=== PATIENT | male | born 1970 | race Caucasian/White ===

== ENCOUNTER 2020-12-07 21:46 | Emergency (ER) | payer OTHER, SELFPAY ==
--- NOTE | ~2020-12-07 | XR_ITS ---
EXAMINATION: XR chest 1V EXAM DATE: 12/07/2020 23:18 INDICATION: Dizziness, paresthesias in fingers. TECHNIQUE: Portable AP frontal chest x-ray was obtained. There is no prior study for comparison. FINDINGS: There is linear left perihilar subsegmental atelectasis. The lungs are otherwise clear. Th ere are no pleural effusions. The cardiomediastinal silhouette is within normal limits. There is no pneumothorax suspected. The bones and soft tissues are unremarkable. IMPRESSION: Linear left perihilar atelectasis. Reviewed, dictated and finalized at location G.
--- NOTE | ~2020-12-07 | CT_ITS ---
EXAMINATION: CTA brain carotid EXAM DATE: 12/07/2020 23:14 INDICATION: Dizziness, finger paresthesia. TECHNIQUE: Noncontrast head CT. Spiral CTA of the carotid arteries was performed with intravenous i njection 100 cc of Omnipaque 350. Axial, coronal, sagittal reformatted images reviewed. Additional r eformatted images created on dedicated 3-D workstation. NASCET comparable standard used to assess th e degree of arterial stenosis. Spiral CT angiogram cerebral arteries performed with the same intrave nous injection of contrast. Source images of the brain CTA transferred to dedicated workstation for 3 -D rotational image creation. Coronal, sagittal maximum intensity pixel images also reviewed. The d ose-length product (DLP) for this examination was 1849.92 mGy-cm. The exposure was tailored accordi ng to patient size, and iterative reconstruction (ASIR) was used as additional dose reduction techniq ue. There is no prior study for comparison. FINDINGS: There is no carotid bulb or siphon arterial sclerosis. The vertebral arteries are codominan t. There is no carotid or vertebral basilar arterial dissection or fibromuscular dysplasia. There ar e no cerebral artery aneurysms. There is symmetric cerebral artery arborization. The sagittal, transv erse and sigmoid sinuses enhance normally, no venous sinus thrombosis. Internal cerebral veins also e nhance normally. There is no acute intraparenchymal hemorrhage. No evidence of intraparenchymal brain mass lesion. N o evidence of acute infarction. There is no mass effect or midline shift. There is no obstructive hyd rocephalus suspected. There are no extra-axial collections. There are no calvarial acute fractures. IMPRESSION: 1. No acute carotid or intracranial findings. 2. Bilateral carotid bulb 0% stenosis. Reviewed, dictated and finalized at location G.
[2020-12-07 21:49] VITALS: BP 155/99; PULSE 57; RESP 20; TEMP 36.7; O2SAT 100
[2020-12-07 22:06] VITALS: BP 137/74; PULSE 58; RESP 12; O2SAT 99
--- NOTE | 2020-12-07 22:17 | ECG_ITS ---
Measurements Intervals [place] Rate: 57 P: 64 RI: 154 QRS: 70 QRSD: 104 T: 41 QT: 404 QTc: 397 Interpretive Statements SINUS BRADYCARDIA BORDERLINE ECG Electronically Signed On 12-08-2020 7:01:04 CDT by Chong Galindo D.O.
[2020-12-07] MEDS: SODIUM CHLORIDE 0.9% IV 1,000 ML 999 ML IV CONT (22:25)
[2020-12-07 22:37] LABS: Basophils Absolute Auto 0.1 K/mm3 (0.0-0.1); Basophils Percent Auto 1.3 % (0.2-1.2); Eosinophils Absolute Auto 0.1 K/mm3 (0-0.3); Eosinophils Percent Auto 2.2 % (0-4.4); Hematocrit 45.1 % (42.0-52.0); Hemoglobin 15.1 g/dL (14.0-18.0); Immature Granulocyte Absolute 0.02 K/mm3 (0.00-0.031); Immature Granulocyte Percent A 0.3 % (0-0.5); Lymphocytes Absolute Auto 2.85 K/mm3 (0.9-3.2); Lymphocytes Percent Auto 47.5 % (18.3-44.2); Mean Corpuscular HGB Conc 33.5 g/dl (32-36); Mean Corpuscular Hemoglobin 29.9 pg (26-34); Mean Corpuscular Volume 89.3 fl (80-100); Mean Platelet Volume 10.4 fl (7.4-10.4); Monocytes Absolute Auto 0.6 K/mm3 (0.1-0.6); Monocytes Percent Auto 9.3 % (2.6-8.5); Neutrophils Absolute Auto 2.4 K/mm3 (1.3-6.7); Neutrophils Percent Auto 39.4 % (45.5-73.1); Platelet Count Result 289 k/mm3 (150-375); Red Blood Count 5.05 M/mm3 (4.6-6.20); Red Cell Distribution Width 12.7 % (11.5-14.5)
[2020-12-07 22:48] LABS: INR 0.9; Prothrombin Time 12.8 Seconds (11.1-14.7)
[2020-12-07 22:55] LABS: Alanine Aminotransferase 16 U/L (4-50); Albumin Level 4.2 g/dL (3.5-5.1); Alkaline Phosphatase 69 U/L (38-126); Anion Gap 5 mmol/L (8-16); Aspartate Amino Transferase 20 U/L (17-59); Bilirubin,Total 0.3 mg/dL (0.2-1.3); Blood Urea Nitrogen 19 mg/dL (9-20); Calcium 8.7 mg/dL (8.4-10.2); Carbon Dioxide 31 mmol/L (22-30); Chloride 102 mmol/L (98-107); Estimated CRCL calculation 78 ml/min; Estimated Glomerular Filt Rate > 60; Glucose 100 mg/dL (75-110); Sodium 138 mmol/L (137-145)
[2020-12-07 23:57] VITALS: BP 121/73; PULSE 57; RESP 18; O2SAT 99
--- NOTE | 2020-12-08 00:22 | ED.GENADULT ---
HPI - General Adult General Chief complaint: Neuro Symptoms/Deficit Stated complaint: lightheaded, neck pain Time Seen by Provider: 12/07/20 22:09 History of Present Illness HPI narrative: Patient is a 50-year-old gentleman who presents to emergency department with chief complaint of dizziness lightheadedness and numbness in bilateral arms. The patient states this been going on for approximately 1 week patient reports he has not followed up with his primary care physician. Patient reports that he had a primary injury of head injury many years ago when he was approximately age 15 patient reports since then he has had chronic neck pain but is never really had any work-up for this. Patient denies fever denies chest pain no shortness of breath denies focal neurological deficit Related Data Allergies Allergy/AdvReac Type Severity Reaction Status Date / Time No Known Allergies Allergy Verified 12/07/20 22:10 Review of Systems Review of Systems: Narrative: A 10 system review of systems was completed on the patient and is negative except for what is stated in the HPI. Nursing and ancillary documentation was reviewed. [facility] Family History Family History (Updated 01/08/17 @ 11:33 by DOCTOR UNKNOWN) Father Diabetes mellitus Family history of gout Family history of arthritis Social History Social History Smoking status: Never smoker Alcohol intake: current Gender identity (if verbalized by the patient): Male Comments Patient denies medical history Social history patient denies smoking Exam Narrative: Exam Narrative: GENERAL: Well-appearing, well-nourished, and in no acute distress. HEAD: Normocephalic, atraumatic. EYES: PERRLA and EOMI. ENT: Nares clear, no rhinorrhea or epistaxis. Mucous membranes moist. NECK: Supple. CHEST: Clear to auscultation. No respiratory distress. HEART: Regular rate and rhythm. No murmur heard. Normal peripheral pulses. ABDOMEN: Soft, nontender, nondistended, normal active bowel sounds. EXTREMITIES: Normal range of motion. No edema. SKIN: Warm, dry, no rash. NEURO: No focal deficits. Alert and oriented x3. PSYCH: Normal mood and affect. Course Vital Signs Vital signs: Vital Signs Temperature 36.7 C 12/07/20 21:49 Pulse Rate 57 L 12/07/20 21:49 Respiratory Rate 20 12/07/20 21:49 Blood Pressure 155/99 H 12/07/20 21:49 Pulse Oximetry 100 03/23/21 21:49 Temperature 36.7 C 12/07/20 21:49 Pulse Rate 57 L 12/07/20 23:57 Respiratory Rate 18 12/07/20 23:57 Blood Pressure 121/73 12/07/20 23:57 Pulse Oximetry 99 12/07/20 23:57 Medical Decision Making Vital Signs Vital Signs: Vital Signs Temperature 36.7 C 12/07/20 21:49 Pulse Rate 57 L 12/07/20 21:49 Respiratory Rate 20 12/07/20 21:49 Blood Pressure 155/99 H 12/07/20 21:49 Pulse Oximetry 100 12/07/20 21:49 Temperature 36.7 C 12/07/20 21:49 Pulse Rate 57 L 12/07/20 23:57 Respiratory Rate 18 12/07/20 23:57 Blood Pressure 121/73 12/07/20 23:57 Pulse Oximetry 99 12/07/20 23:57 Lab Data Result diagrams: 12/07/20 22:27 12/07/20 22:27 Labs: Lab Results 12/07/20 12/07/20 12/07/20 Range/Units 22:27 22:27 22:27 WBC 6.0 (4.5-10.0) K/mm3 RBC 5.05 (4.6-6.20) M/mm3 Hgb 15.1 (14.0-18.0) g/dL Hct 45.1 (42.0-52.0) % MCV 89.3 (80-100) fl MCH 29.9 (26-34) pg MCHC 33.5 (32-36) g/dl RDW 12.7 (11.5-14.5) % Plt Count 289 (150-375) k/mm3 MPV 10.4 (7.4-10.4) fl Immature Gran % (Auto) 0.3 (0-0.5) % Neut % (Auto) 39.4 L (45.5-73.1) % Lymph % (Auto) 47.5 H (18.3-44.2) % Miller % (Auto) 9.3 H (2.6-8.5) % Eos % (Auto) 2.2 (0-4.4) % Baso % (Auto) 1.3 H (0.2-1.2) % Lymph # (Auto) 2.85 (0.9-3.2) K/mm3 Miller # (Auto) 0.6 (0.1-0.6) K/mm3 Eos # (Auto) 0.1 (0-0.3) K/mm3 Baso # (Auto) 0.1 (0.0-0.1) K/mm3 Abs Immat Gran (auto) 0.02 (0.00-0.031
[2020-12-08 00:29] LABS: Add Urine Microscopic? NO; Appearance Urine Clear (Clear); Bilirubin Urine Negative (Negative); Blood Urine Negative (Negative); Color Urine Yellow (Yellow); Glucose Urine UA Negative (Negative); Ketones Urine Negative (Negative); Leukocyte Esterase Ur Negative LEU/UL (Negative); Nitrate Urine Negative (Negative); Protein Urine Negative (Negative); Urobilinogen Urine Negative mg/dL (<2.0)
[2020-12-08 00:38] LABS: Specific Grav Ur 1.032 (1.001-1.035)
[2020-12-08 00:58] VITALS: BP 127/71; PULSE 58; RESP 18; O2SAT 99
== END 2020-12-08 01:10 | disposition home or self-care (01) ==
PROVIDERS: Emergency Provider Emergency Medicine; PCP Internal Medicine
DX: R42 Dizziness and giddiness (principal)
CPT/HCPCS: 36415; 70496; 70498; 71045; 80053; 81003; 83735; 85025; 85610; 85730; 93005; 96360; 99284; J7030; Q9967

== ENCOUNTER 2021-08-25 08:16 | Outpatient (CLI) | payer OTHER, SELFPAY ==
[2021-08-25 08:27] LABS: Basophils Absolute Auto 0.06 K/mm3 (0.00-0.10); Basophils Percent Auto 1.2 % (0.0-1.0); Eosinophils Absolute Auto 0.07 K/mm3 (0.02-0.50); Eosinophils Percent Auto 1.4 % (1.0-6.0); Hematocrit 46.5 % (40.0-54.0); Hemoglobin 15.6 g/dL (14.0-18.0); Immature Granulocyte Absolute 0.01 K/mm3 (0.00-0.00); Immature Granulocyte Percent A 0.2 % (0.0-0.0); Lymphocytes Absolute Auto 1.87 K/mm3 (1.10-4.50); Mean Corpuscular HGB Conc 33.5 g/dL (32.0-36.0); Mean Corpuscular Hemoglobin 30.6 pg (27.0-31.0); Mean Corpuscular Volume 91.2 fL (78.0-102.0); Monocytes Absolute Auto 0.41 K/mm3 (0.10-0.90); Monocytes Percent Auto 8.1 % (2.0-11.0); Neutrophils Absolute Auto 2.6 K/mm3 (1.7-7.2); Neutrophils Percent Auto 52.1 % (50.0-70.0); Platelet Count Result 272 K/mm3 (150-420); Red Cell Distribution Width 12.5 % (11.6-14.4); White Blood Count 5.1 K/mm3 (4.8-10.8)
[2021-08-25 08:35] LABS: Add Urine Microscopic? NO; Appearance Urine Clear (Clear); Bilirubin Urine Negative (Negative); Blood Urine Negative (Negative); Color Urine Light Yellow (Yellow); Glucose Urine UA Negative (Negative); Ketones Urine Negative (Negative); Leukocyte Esterase Ur Negative LEU/UL (Negative); Nitrate Urine Negative (Negative); Protein Urine Negative (Negative); Specific Grav Ur 1.015 (1.010-1.020); Urobilinogen Urine 0.2 mg/dL (0.2-1.0)
[2021-08-25 09:10] LABS: Alanine Aminotransferase 32 U/L (16-63); Albumin Level 3.9 g/dL (3.4-5.0); Alkaline Phosphatase 73 U/L (46-116); Anion Gap 7 mmol/L (8-16); Aspartate Amino Transferase 17 U/L (15-37); Bilirubin,Total 0.6 mg/dL (0.00-1.00); Blood Urea Nitrogen 16 mg/dL (7-18); Carbon Dioxide 32 mmol/L (21-32); Chloride 102 mmol/L (98-108); Cholesterol 286 mg/dL (0-200); Estimated Glomerular Filt Rate > 60; Free T4 Free Thyroxine 0.87 ng/dL (0.76-1.46); Glucose 108 mg/dL (70-99); HDL Direct 57 mg/dL (40-60); LDL Cholesterol Calculated 205 mg/dL (<130); Osmolality Calculated 294 mOsm/kg (285-295); Potassium 4.6 mmol/L (3.5-5.1); Sodium 141 mmol/L (136-145); Thyroid Stimulating Hormone 2.13 uIU/mL (0.36-3.74); Triglycerides 118 mg/dL (0-150)
[2021-08-25 15:05] LABS: Hemoglobin A1C 5.7 % (<5.7)
== END 2021-08-25 08:17 | disposition home or self-care (01) ==
LOC: CHSLAB 08:18
PROVIDERS: PCP Internal Medicine; Visit Provider Nurse Practitioner Family
DX: R03.0 Elevated blood-pressure reading, without diagnosis of hypertension (principal); E78.2 Mixed hyperlipidemia; M10.9 Gout, unspecified; Z00.00 Encounter for general adult medical examination without abnormal findings; R73.01 Impaired fasting glucose
CPT/HCPCS: 36415; 80053; 80061; 81003; 83036; 84439; 84443; 84550; 85025

== ENCOUNTER 2021-08-26 11:01 | Outpatient (CLI) | payer OTHER, SELFPAY ==
--- NOTE | ~2021-08-26 | XR_ITS ---
EXAMINATION: XR abdomen/kub 1V INDICATION: Bilateral posterior back pain TECHNIQUE: Single AP view radiograph of the abdomen is obtained. COMPARISON: Lumbar spine radiographs dated 08/11/2015 FINDINGS: No urolithiasis is identified. A 2 mm left pelvic calcification is seen on the prior examin ation, consistent with a phlebolith. The bowel gas pattern is normal. The visualized osseous structur es are unremarkable. IMPRESSION: 1. No radiographic correlate for the patient's symptoms. Reviewed, dictated and finalized at location A. GIRDLER
--- NOTE | ~2021-08-26 | XR_ITS ---
EXAMINATION: XR thoracic spine 3V DATE: 08/26/2021 11:37 INDICATION: Back pain, history of compression fracture TECHNIQUE: AP, lateral and lateral swimmer's views of the thoracic spine were obtained. COMPARISON: 08/11/2015 FINDINGS: Bone alignment is normal. No acute fracture is identified. Again noted is mild chronic ante rior wedging in the midthoracic spine. The intervertebral disc space heights are maintained. IMPRESSION: 1. No acute osseous abnormality. Reviewed, dictated and finalized at location A. PROCESS ASSISTANT HEAD MILLER
[2021-08-26 11:59] LABS: Prostate Specific Antigen 0.9 ng/mL (< OR = 4.0)
== END 2021-08-26 11:02 | disposition home or self-care (01) ==
LOC: CHSLAB 11:03
PROVIDERS: PCP Internal Medicine; Visit Provider Nurse Practitioner Family
DX: M54.9 Dorsalgia, unspecified (principal); Z12.5 Encounter for screening for malignant neoplasm of prostate
CPT/HCPCS: 36415; 72072; 74018; 84153; G0103

== ENCOUNTER 2021-09-05 11:32 | Outpatient (CLI) | payer OTHER, SELFPAY ==
[2021-09-05 13:08] LABS: Vitamin B12 271 pg/mL (193-986)
[2021-09-05 13:12] LABS: CRP < 0.5 mg/dL (0.0-0.9)
[2021-09-08 04:14] LABS: Albumin 4.7 g/dL (3.8-4.8); Alpha 1 Globulin 0.2 g/dL (0.2-0.3); Alpha 2 Globulin 0.6 g/dL (0.5-0.9); Beta 1 Globulin 0.4 g/dL (0.4-0.6); Protein, Total 7.4 g/dL (6.1-8.1)
[2021-09-09 05:53] LABS: Aldolase 3.6 U/L (<=8.1)
[2021-09-11 10:31] LABS: Methylmalonic Acid 155 nmol/L (87-318)
== END 2021-09-05 11:33 | disposition home or self-care (01) ==
LOC: CHSLAB 11:35
PROVIDERS: PCP Internal Medicine; Visit Provider Internal Medicine
DX: M79.10 Myalgia, unspecified site (principal); G62.9 Polyneuropathy, unspecified; D51.9 Vitamin B12 deficiency anemia, unspecified
CPT/HCPCS: 36415; 82085; 82607; 83921; 84155; 84165; 86038; 86140; 86334

== ENCOUNTER 2022-10-20 08:33 | Outpatient (CLI) | payer OTHER, SELFPAY ==
[2022-10-20 08:51] LABS: Basophils Absolute Auto 0.06 K/mm3 (0.00-0.10); Basophils Percent Auto 1.2 % (0.0-1.0); Eosinophils Absolute Auto 0.09 K/mm3 (0.02-0.50); Eosinophils Percent Auto 1.8 % (1.0-6.0); Hematocrit 44.8 % (40.0-54.0); Hemoglobin 14.8 g/dL (14.0-18.0); Immature Granulocyte Absolute 0.01 K/mm3 (0.00-0.00); Immature Granulocyte Percent A 0.2 % (0.0-0.0); Lymphocytes Absolute Auto 1.88 K/mm3 (1.10-4.50); Lymphocytes Percent Auto 36.7 % (18.0-42.0); Mean Corpuscular Hemoglobin 30.4 pg (27.0-31.0); Mean Platelet Volume 10.4 fl (8.7-11.0); Monocytes Absolute Auto 0.42 K/mm3 (0.10-0.90); Monocytes Percent Auto 8.2 % (2.0-11.0); Neutrophils Absolute Auto 2.7 K/mm3 (1.7-7.2); Neutrophils Percent Auto 51.9 % (50.0-70.0); Platelet Count Result 243 K/mm3 (150-420); Red Blood Count 4.87 M/mm3 (4.70-6.10); Red Cell Distribution Width 12.9 % (11.6-14.4); White Blood Count 5.1 K/mm3 (4.8-10.8)
[2022-10-20 08:54] LABS: Add Urine Microscopic? YES; Appearance Urine Clear (Clear); Bilirubin Urine Negative (Negative); Blood Urine Trace-Intact (Negative); Color Urine Light Yellow (Yellow); Glucose Urine UA Negative (Negative); Ketones Urine Negative (Negative); Leukocyte Esterase Ur Negative LEU/UL (Negative); Nitrate Urine Negative (Negative); Protein Urine Negative (Negative); Specific Grav Ur <= 1.005 (1.010-1.020); Urobilinogen Urine 0.2 mg/dL (0.2-1.0)
[2022-10-20 09:04] LABS: Bacteria Urine None seen /hpf; RBC Urine 0-2 /hpf (0-2); Squamous Epithelial Cell Urine Rare /hpf (Few); WBC Urine 0-3 /hpf (0-3)
[2022-10-20 09:51] LABS: Alanine Aminotransferase 23 U/L (16-63); Alkaline Phosphatase 73 U/L (46-116); Anion Gap 6 mmol/L (8-16); Aspartate Amino Transferase 15 U/L (15-37); Bilirubin Direct 0.1 mg/dL (0-0.2); Bilirubin,Total 0.4 mg/dL (0.00-1.00); Blood Urea Nitrogen 19 mg/dL (7-18); Calcium 8.8 mg/dL (8.5-10.1); Carbon Dioxide 31 mmol/L (21-32); Chloride 103 mmol/L (98-108); Cholesterol 250 mg/dL (0-200); Estimated Glomerular Filt Rate > 60; Glucose 106 mg/dL (70-99); HDL Direct 50 mg/dL (40-60); LDL Cholesterol Calculated 171 mg/dL (<130); Osmolality Calculated 292 mOsm/kg (285-295); Phosphorus 3.1 mg/dL (2.6-4.7); Potassium 4.1 mmol/L (3.5-5.1); Prostate Specific Antigen 1.2 ng/mL (< OR = 4.0); Sodium 140 mmol/L (136-145); Thyroid Stimulating Hormone 1.55 uIU/mL (0.36-3.74); Total Protein 7.1 g/dL (6.4-8.2); Triglycerides 144 mg/dL (0-150); Uric Acid 7.2 mg/dL (3.5-7.2)
== END 2022-10-20 08:34 | disposition home or self-care (01) ==
LOC: CHSLAB 08:35
PROVIDERS: PCP Internal Medicine; Visit Provider Internal Medicine
DX: Z00.00 Encounter for general adult medical examination without abnormal findings (principal); Z12.5 Encounter for screening for malignant neoplasm of prostate
CPT/HCPCS: 36415; 80053; 80061; 81001; 82248; 84100; 84153; 84439; 84443; 84550; 85025; G0103

== ENCOUNTER 2023-10-26 08:08 | Outpatient (CLI) | payer OTHER, SELFPAY ==
--- NOTE | ~2023-10-26 | CT_ITS ---
CT of the Abdomen and Pelvis: Indication: Abdominal pain Technique: 2.5 mm axial scans were obtained through the abdomen and pelvis following intravenous adm inistration of 100 cc of Omnipaque 350. Dose reduction technique was used on this scan by utilizing a utomated exposure control and iterative reconstruction technique. The dose-length product (DLP) was 3 13.78 mGy-cm. Findings: Scans through the lung bases are unremarkable. The liver, spleen, pancreas, gallbladder, adrenals and kidneys are within normal limits. No evidence of aortic aneurysm. No lymphadenopathy. No bowel obstruction or bowel wall thickening. There is no evidence to suggest acute appendicitis. Images through the pelvis were performed. Urinary bladder unremarkable. No pelvic mass seen. No ascit es. Impression: No significant abnormalities seen. Reviewed, dictated and finalized at location . ICAL MANAGER Impression: No significant abnormalities seen.
[2023-10-26 08:25] LABS: Hematocrit 45.1 % (40.0-54.0); Hemoglobin 14.9 g/dL (14.0-18.0); Mean Corpuscular Hemoglobin 29.6 pg (27.0-31.0); Mean Corpuscular Volume 89.5 fL (78.0-102.0); Mean Platelet Volume 10.1 fl (8.7-11.0); Platelet Count Result 200 K/mm3 (150-420); Red Blood Count 5.04 M/mm3 (4.70-6.10); Red Cell Distribution Width 12.5 % (11.6-14.4); White Blood Count 3.8 K/mm3 (4.8-10.8)
[2023-10-26 08:26] LABS: Appearance Urine Clear (Clear); Bilirubin Urine Negative (Negative); Blood Urine Negative (Negative); Color Urine Light Yellow (Yellow); Glucose Urine UA Negative (Negative); Ketones Urine Negative (Negative); Leukocyte Esterase Ur Negative (Negative); Nitrate Urine Negative (Negative); Protein Urine Negative (Negative); Specific Grav Ur <= 1.005 (1.010-1.020); Urobilinogen Urine 0.2 mg/dL (0.2-1.0)
[2023-10-26 08:32] LABS: Add Urine Microscopic? NO
[2023-10-26 08:52] LABS: Band Neutrophils Percent 0 % (0-6); Basophils Absolute Manual 0.03 K/mm3 (0-0.1); Basophils Percent Manual 1 % (0-1); Eosinophils Absolute Manual 0.07 K/mm3 (0.02-0.5); Eosinophils Percent Manual 2 % (1-6); Lymphocytes Absolute Manual 1.86 K/mm3 (1.1-4.5); Lymphocytes Percent Manual 49 % (18-44); Monocytes Absolute Manual 0.11 K/mm3 (0.1-0.90); Monocytes Percent Manual 3 % (3-9); Neutrophils Absolute Manual 1.71 K/mm3 (1.3-6.7); Neutrophils Percent Manual 45 % (46-73); Platelet Estimate Adequate (Adequate); Total Cells Counted 100
[2023-10-26 08:53] LABS: Hemoglobin A1C 5.6 % (<5.7)
[2023-10-26 09:18] LABS: Estimated Glomerular Filt Rate > 60
[2023-10-26 09:46] LABS: Alanine Aminotransferase 21 U/L (16-63); Albumin Level 3.7 g/dL (3.4-5.0); Alkaline Phosphatase 69 U/L (46-116); Anion Gap 8 mmol/L (8-16); Aspartate Amino Transferase 21 U/L (15-37); Bilirubin,Total 0.4 mg/dL (0.00-1.00); Blood Urea Nitrogen 16 mg/dL (7-18); Calcium 8.4 mg/dL (8.5-10.1); Carbon Dioxide 30 mmol/L (21-32); Chloride 103 mmol/L (98-108); Cholesterol 195 mg/dL (0-200); Erythrocyte Sedimentation Rate 18 mm/hr (0-20); Free T3 2.62 pg/mL (2.18-3.98); Free T4 Free Thyroxine 0.91 ng/dL (0.76-1.46); Glucose 96 mg/dL (70-99); HDL Direct 44 mg/dL (40-60); LDL Cholesterol Calculated 121 mg/dL (<130); Osmolality Calculated 293 mOsm/kg (285-295); Prostate Specific Antigen 0.9 ng/mL (< OR = 4.0); Sodium 141 mmol/L (136-145); Thyroid Stimulating Hormone 1.67 uIU/mL (0.36-3.74); Total Protein 6.8 g/dL (6.4-8.2); Triglycerides 152 mg/dL (0-150); Uric Acid 6.5 mg/dL (3.5-7.2); Vitamin B12 467 pg/mL (193-986)
[2023-10-30 14:58] LABS: Testosterone Free 111.7 pg/mL (35.0-155.0); Testosterone Total 573 ng/dL (250-1100)
== END 2023-10-26 08:09 | disposition home or self-care (01) ==
LOC: CHSIMG 08:12
PROVIDERS: PCP Internal Medicine; Visit Provider Internal Medicine
DX: Z00.00 Encounter for general adult medical examination without abnormal findings (principal); E78.2 Mixed hyperlipidemia; M10.9 Gout, unspecified; R73.01 Impaired fasting glucose; I10 Essential (primary) hypertension; E53.8 Deficiency of other specified B group vitamins; Z12.5 Encounter for screening for malignant neoplasm of prostate
CPT/HCPCS: 36415; 74177; 80053; 80061; 81003; 82607; 83036; 84153; 84402; 84403; 84439; 84443; 84481; 84550; 85025; 85652; G0103; Q9967

== ENCOUNTER 2024-01-21 07:37 | Outpatient (CLI) | payer OTHER, SELFPAY ==
--- NOTE | ~2024-01-21 | US_ITS ---
EXAMINATION: US soft tissue groin RT, US soft tissue groin LT DATE: 01/21/2024 08:26 INDICATION: Abdominal, pelvic and inguinal lymphadenopathy with pain TECHNIQUE: Multiple grayscale and Doppler ultrasound images of the bilateral inguinal regions were ob tained. COMPARISON: None FINDINGS: There are few normal-sized and normal-appearing bilateral inguinal lymph nodes, the largest measuring 4 to 5 mm in maximal short axis diameter with prominent central fatty echogenic dariel. No pathologica lly enlarged lymph nodes, inguinal hernias or other abnormal masses or fluid collections identified. IMPRESSION: 1. Normal ultrasound of the bilateral inguinal regions. Reviewed, dictated and finalized at location A. IMPRESSION: 1. Normal ultrasound of the bilateral inguinal regions.
[2024-01-21 08:07] LABS: Basophils Absolute Auto 0.04 K/mm3 (0.00-0.10); Basophils Percent Auto 0.8 % (0.0-1.0); Eosinophils Absolute Auto 0.09 K/mm3 (0.02-0.50); Eosinophils Percent Auto 1.8 % (1.0-6.0); Hematocrit 43.6 % (40.0-54.0); Hemoglobin 14.7 g/dL (14.0-18.0); Immature Granulocyte Absolute 0.01 K/mm3 (0.00-0.00); Immature Granulocyte Percent A 0.2 % (0.0-0.0); Lymphocytes Absolute Auto 1.53 K/mm3 (1.10-4.50); Lymphocytes Percent Auto 30.8 % (18.0-42.0); Mean Corpuscular HGB Conc 33.7 g/dL (32-36); Mean Corpuscular Hemoglobin 30.9 pg (27.0-31.0); Mean Corpuscular Volume 91.6 fL (78.0-102.0); Monocytes Absolute Auto 0.45 K/mm3 (0.10-0.90); Monocytes Percent Auto 9.1 % (2.0-11.0); Neutrophils Absolute Auto 2.84 K/mm3 (1.70-7.20); Neutrophils Percent Auto 57.3 % (50.0-70.0); Platelet Count Result 234 K/mm3 (150-420); Red Blood Count 4.76 M/mm3 (4.70-6.10); Red Cell Distribution Width 12.8 % (11.6-14.4)
== END 2024-01-21 07:38 | disposition home or self-care (01) ==
LOC: CHSIMG 07:41
PROVIDERS: PCP Internal Medicine; Visit Provider Nurse Practitioner Family
DX: R79.89 Other specified abnormal findings of blood chemistry (principal); R10.9 Unspecified abdominal pain; R59.0 Localized enlarged lymph nodes
CPT/HCPCS: 36415; 76882; 85025

== ENCOUNTER 2024-12-12 07:57 | Outpatient (CLI) | payer OTHER, SELFPAY ==
--- OUTSIDE RECORDS SUMMARY | 2024-12-12 08:03 | XMS_ITS | Clinical Summary ---
Author Organization [facility] Address [address] [place] [address] Care Team Providers Care Collar Runner Name Role Phone Mookie Porter MD Primary Care Provider [phone] Allergies No known active allergies Medications vitamin B-12 100 MCG tablet Take 50 mcg by mouth daily. 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 Gender Identity Not on file Sexual Orientation Not on file Last Filed Vital Signs Vital Sign Reading Time Taken Comments Blood Pressure 128/72 10/14/2021 9:40 AM INDUSTRIAL REGISTERED NURSE Pulse 74 10/14/2021 9:40 AM INDUSTRIAL REGISTERED NURSE Temperature - - Respiratory Rate - - Oxygen Saturation 98% 10/14/2021 9:40 AM INDUSTRIAL REGISTERED NURSE Inhaled Oxygen Concentration - - Weight 81.5 kg (179 lb 9.6 oz) 10/14/2021 9:40 A M INDUSTRIAL REGISTERED NURSE Height 180.3 cm (5' 11 ) 10/14/2021 9:40 AM INDUSTRIAL REGISTERED NURSE Body Mass Index 25.05 10/14/2021 9:40 AM INDUSTRIAL REGISTERED NURSE Plan of Treatment Health Maintenance Due Date Last Done Comments Colorectal Cancer Screening Colonoscopy (10 Years) 1970 Annual Physical 1973 Hepatitis C 1988 Hepatitis B Vaccines (1 of 3 - 19+ 3-dose series) 1989 Zoster Vaccines (1 of 2) 2020 DTaP, Tdap and Td Vaccines (2 - Td or Tdap) 08/06/2022 08/06/2012 COVID-19 Vaccine ( season) 2024 Influenza Adult (#1) 2024 07/22/2019, 08/15/2018, 09/19/2016, Additional history exists Meningococcal B Vaccine Aged Out No l onger eligible based on patient's age to complete this topic Meningococcal Vaccine Aged Out No brandt brandt eligible based on patient's age to complete this topic Pneumococcal Vaccine: Pediatrics (0 to 5 Years) and At-Risk Patients (6 to 64 Years) Aged Out No longer eligible based on patient's age to complete this topic RSV Immunizations Under 20 Months Aged Out No longer eligible based on patient's age to complete this topic Insurance [facility] Care Teams Collar Runner Relationship Specialty Start Date End Date Mookie Porter MD [address] [place] [address] PCP - General INTERNAL MEDICINE 09/28/21
--- OUTSIDE RECORDS SUMMARY | 2024-12-12 08:03 | XMS_ITS | Encounter Summary ---
Author Organization [facility] Address [address] [place] [address] Care Team Providers Care Tile Conduit Layer Name Role Phone Mookie Porter MD Primary Care Provider [phone] Encounter Details Date Type Department Care Team (Late st Contact Info) Description 11/15/2021 Telephone [facility] Pre Access Team [address] [place] [address] Mike Schneider MD [address] [place] [id number] Social History Tobacco Use Types Packs/Day Years Used Date Smoking Tobacco: Never Assessed Sex and Gender Information Value Date Recorded Sex Assigned at Not on file 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 I am removing the order from our WQ, but it will still be available for 30 days. Thanks. OELECTRIC OPERATOR documented in this encounter Plan of Treatment Not on file documented as of this encounter Visit Diagnoses Not on filedocumented in this encounter Care Teams Tile Conduit Layer Relationship Specialty Start Date End Date Mookie Porter MD [address] [place] [address] PCP - General INTERNAL MEDICINE 09/28/21 documented as of this encounter
--- OUTSIDE RECORDS SUMMARY | 2024-12-12 08:03 | XMS_ITS | Clinical Summary ---
Author Organization [facility] Address [address] [place] [phone] Care Team Providers Care Manager Insurance Name Role Phone Mookie Porter MD Primary Care Provider [phone] Allergies No known active allergies Medications colchicine (COLCRYS) 0.6 mg tablet Take 1 tablet (0.6 mg total) by mouth daily Active Active Problems Problem Noted Date Diagnosed Date Abnormal EKG 01/03/2023 Multiple risk factors for coronary artery diseas e 01/03/2023 Medical History Medical History Date Comments Hyperlipidemia Gout Anxiety Tremor Family History Medical History Relation Name Comments Hyperlipidemia Father Hypertension Father Gout Mother Hyperlipidemia Mother Hypertension Mother Leukemia Sister Relation Name Status Comments Father Alive Mother Alive Sister Social History Tobacco Use Types Packs/Day Years Used Date Smoking Tobacco: Never Tobacco Cessation:Counseling Given: Not Answered Personal Safety Answer Date Recorded Getting School Help Needed Not on file 09/24 Sex and Gender Information Value Date Recorded Sex Assigned at Not on file 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 Gender Identity Not on file Sexual Orientation Not on file Obstetrics History Last Filed Vital Signs Vital Sign Reading Time Taken Comments Blood Pressure 138/90 01/03/2023 8:22 AM CDT Pulse 71 01/03/2023 8:22 AM CDT Temperature - - Respiratory Rate - - Oxygen Saturation 98% 01/03/2023 8:22 AM CDT Inhaled Oxygen Concentration - - Weight 79.7 kg (175 lb 9.6 oz) 01/03/2023 8:22 A M CDT Height 180.3 cm (5' 11 ) 01/03/2023 8:22 AM CDT Body Mass Index 24.49 01/03/2023 8:22 AM CDT Plan of Treatment Health Maintenance Due Date Last Done Comments Colon Cancer Screening-Colonoscopy 1970 Depression Screening 1970 Hepatitis C Screening 1970 Prostate Cancer Screening-PSA 1970 Hepatitis B Screening 1988 Regular Well Visit/Exam 18-64 1988 Zoster Vaccine (1 of 2) 2020 DTaP/Tdap/Td Vaccine (2 - Td or Tdap) 08/06/2022 08/06/2012 Influenza Vaccine (#1) 2024 9, 08/15/2018, 09/19/2016, Additional history exists Pneumococcal vaccine <65 Aged Out No longer eligible based on patient's age to complete this topic Insurance [facility] CHOICE [facility] H[facility]/PPO Address: [facility] [address] [place] [address] Care Teams Manager Insurance Relationship Specialty Start Date End Date Mookie Porter MD [address] [place] [address] PCP - General 05/12/10
--- OUTSIDE RECORDS SUMMARY | 2024-12-12 08:04 | XMS_ITS | Clinical Summary ---
Author Organization [facility] Address [address] [place] [address] Care Team Providers Care House Officer Name Role Phone Unknown, Provider Primary Care Provider Unavaila ble Source Comments [facility] [employer],non-owned Affiliates and Associated Physician Practices is amultiple site organization consisting of ambulatory clinics and hospital sitesin [place], [place], [place] and [place]. This disclosure is being madepursuant to the Care Everywhere program and may not contain all information available regarding this patient. Last updated 18.[facility] [employer] Social History Tobacco Use Types Packs/Day Years Used Date Smoking Tobacco: Never Assessed Sex and Gender Information Value Date Recorded Sex Assigned at Not on file Gender Identity Not on file Sexual Orientation Not on file Plan of Treatment Health Maintenance Due Date Last Done Comments COLOGUARD (AGES 45-75) - COL ON CA SCREENING 1970 COLON MONITORING 1970 COLONOSCOPY - COLON CA SCREENING 1970 CT COLONOGRAPHY - COLON CA SCREENING 1970 Colorectal Cancer Screening 1970 FIT - COLON CA SCREENING 1970 FLEX SIG - COLON CA SCREENING 1970 LIPID TESTING 1970 HIV SCREENING 1985 HEPATITIS C SCREENING 05/22/1988 DTAP/TDAP/TD VACCINES (1 - Tdap) 1989 HEPATITIS B VACCINE (1 of 3 - 19+ 3-dose series) 1989 PNEUMOCOCCAL VACCINE 50+ (1 of 1 - PCV) 2020 ZOSTER VACCINE (1 of 2) 2020 COVID-19 VACCINE ( - 2023-2 5 season) 2024 INFLUENZA VACCINE (#1) 2024 DEPRESSION SCREENING 09/17/2024 HIB VACCINE Aged Out No longer eligi ble based on patient's age to complete this topic HPV VACCINE Aged Out No longer eligi ble based on patient's age to complete this topic MENINGOCOCCAL (Group B) VACC INE SHARED DECISION-MAKING Aged Out No longer eligibl e based on patient's age to complete this topic MENINGOCOCCAL GROUPS A/C/Y/W VACCINE Aged Out No longer eligible b ased on patient's age to complete this topic PNEUMOCOCCAL VACCINE Aged Out No long er eligible based on patient's age to complete this topic Care Teams House Officer Relationship Specialty Start Date End Date Unknown, Provider PCP - General 11/16/20
--- OUTSIDE RECORDS SUMMARY | 2024-12-12 08:04 | XMS_ITS | Referral Summary ---
Author Organization [facility] Address [address] [place] [id number] Care Team Providers Care Business Process Consultant Name Role Phone Mookie Porter MD Primary Care Provider [phone] Allergies No known active allergies Medications colchicine (COLCRYS) 0.6 mg tablet Take 1 tablet (0.6 mg total) by mouth daily Active Active Problems Problem Noted Date Diagnosed Date Abnormal EKG 01/03/2023 Multiple risk factors for coronary artery diseas e 01/03/2023 Social History Tobacco Use Types Packs/Day Years Used Date Smoking Tobacco: Never Tobacco Cessation:Counseling Given: Not Answered Personal Safety Answer Date Recorded Getting School Help Needed Not on file 09/24 Sex and Gender Information Value Date Recorded Sex Assigned at Not on file 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 [place] [address] Care Teams Business Process Consultant Relationship Specialty Start Date End Date Mookie Porter MD [address] [place] [address] PCP - General 05/12/10
[2024-12-12 08:14] LABS: Add Urine Microscopic? NO; Appearance Urine Clear (Clear); Bilirubin Urine Negative (Negative); Blood Urine Negative (Negative); Color Urine Yellow (Yellow); Glucose Urine UA Negative (Negative); Hematocrit 44.6 % (40.0-54.0); Hemoglobin 14.7 g/dL (14.0-18.0); Ketones Urine Negative (Negative); Leukocyte Esterase Ur Negative (Negative); Mean Corpuscular Hemoglobin 30.2 pg (27.0-31.0); Mean Corpuscular Volume 91.6 fL (78.0-102.0); Mean Platelet Volume 9.8 fl (8.7-11.0); Nitrate Urine Negative (Negative); Platelet Count Result 265 K/mm3 (150-420); Protein Urine Negative (Negative); Red Blood Count 4.87 M/mm3 (4.70-6.10); Red Cell Distribution Width 12.5 % (11.6-14.4); Specific Grav Ur 1.015 (1.010-1.020); White Blood Count 5.2 K/mm3 (4.8-10.8)
[2024-12-12 11:37] LABS: Alanine Aminotransferase 25 U/L (16-63); Albumin Level 3.9 g/dL (3.4-5.0); Alkaline Phosphatase 83 U/L (46-116); Anion Gap 7 mmol/L (4-12); Aspartate Amino Transferase < 10 U/L (15-37); Bilirubin,Total 0.5 mg/dL (0.00-1.00); Blood Urea Nitrogen 18 mg/dL (7-18); Calcium 8.9 mg/dL (8.5-10.1); Carbon Dioxide 29 mmol/L (21-32); Chloride 104 mmol/L (98-108); Cholesterol 281 mg/dL (0-200); Estimated Glomerular Filt Rate > 60; Glucose 109 mg/dL (70-99); HDL Direct 64 mg/dL (40-60); LDL Cholesterol Calculated 200 mg/dL (<130); Osmolality Calculated 292 mOsm/kg (285-295); Potassium 4.3 mmol/L (3.5-5.1); Sodium 140 mmol/L (136-145); Total Protein 6.9 g/dL (6.4-8.2); Triglycerides 85 mg/dL (0-150); Uric Acid 7.7 mg/dL (3.5-7.2); Vitamin B12 752 pg/mL (193-986)
[2024-12-12 15:03] LABS: Prostate Specific Antigen 1.2 ng/mL (< OR = 4.0)
== END 2024-12-12 07:58 | disposition home or self-care (01) ==
PROVIDERS: PCP Internal Medicine; Visit Provider Internal Medicine
DX: Z00.00 Encounter for general adult medical examination without abnormal findings (principal); Z12.5 Encounter for screening for malignant neoplasm of prostate; E53.8 Deficiency of other specified B group vitamins; M10.9 Gout, unspecified
CPT/HCPCS: 36415; 80053; 80061; 81003; 82607; 84153; 84550; 85027; G0103

== ENCOUNTER 2024-12-26 08:27 | Outpatient (CLI) | payer OTHER, SELFPAY ==
--- OUTSIDE RECORDS SUMMARY | 2024-12-26 08:37 | XMS_ITS | Encounter Summary ---
Author Organization [facility] Address [address] [place] [address] Care Team Providers Care Payroll Benefits Clerk Name Role Phone Mookie Porter MD Primary Care Provider [phone] Encounter Details Date Type Department Care Team (Late st Contact Info) Description 11/15/2021 Telephone [facility] Pre Access Team [address] [place] [address] Mike Schneider MD [address] [place] [address] Social History Tobacco Use Types Packs/Day Years Used Date Smoking Tobacco: Never Assessed Sex and Gender Information Value Date Recorded Sex Assigned at Not on file 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 I am removing the order from our WQ, but it will still be available for 30 days. Thanks. AL CEO documented in this encounter Plan of Treatment Not on file documented as of this encounter Visit Diagnoses Not on filedocumented in this encounter Care Teams Payroll Benefits Clerk Relationship Specialty Start Date End Date Mookie Porter MD [address] [place] [address] PCP - General INTERNAL MEDICINE 09/28/21 documented as of this encounter
--- OUTSIDE RECORDS SUMMARY | 2024-12-26 08:37 | XMS_ITS | Clinical Summary ---
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
--- OUTSIDE RECORDS SUMMARY | 2024-12-26 08:37 | XMS_ITS | Clinical Summary ---
Author Organization [facility] Address [address] [place] [address] Care Team Providers Care Manager Body Name Role Phone Unknown, Provider Primary Care Provider Unavaila ble Source Comments [facility],non-owned Affiliates and Associated Physician Practices is amultiple site organization consisting of ambulatory clinics and hospital sitesin [place], [place], [place] and [place]. This disclosure is being madepursuant to the Care Everywhere program and may not contain all information available regarding this patient. Last updated 18.[facility] Social History Tobacco Use Types Packs/Day Years [...] VACCINE ( - 2023-2 5 season) 2024 DEPRESSION SCREENING 09/17/2024 INFLUENZA VACCINE (Season Ended) 2025 HIB VACCINE Aged Out No longer eligi [...] age to complete this topic Care Teams Manager Body Relationship Specialty Start Date End Date Unknown, Provider PCP - General 11/16/20
--- OUTSIDE RECORDS SUMMARY | 2024-12-26 08:37 | XMS_ITS | Referral Summary ---
Author Organization 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
--- OUTSIDE RECORDS SUMMARY | 2024-12-26 08:37 | XMS_ITS | Clinical Summary ---
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 Gender Identity Not on file Sexual Orientation Not on file Last Filed Vital Signs Vital Sign Reading Time Taken Comments Blood Pressure 128/72 10/14/2021 9:40 AM SENIOR ANALYST PROGRAMMER Pulse 74 10/14/2021 9:40 AM SENIOR ANALYST PROGRAMMER Temperature - - Respiratory Rate - - Oxygen Saturation 98% 10/14/2021 9:40 AM SENIOR ANALYST PROGRAMMER Inhaled Oxygen Concentration - - Weight 81.5 kg (179 lb 9.6 oz) 10/14/2021 9:40 A M SENIOR ANALYST PROGRAMMER Height 180.3 cm (5' 11 ) 10/14/2021 9:40 AM SENIOR ANALYST PROGRAMMER Body Mass Index 25.05 10/14/2021 9:40 AM SENIOR ANALYST PROGRAMMER Plan of Treatment Health Maintenance Due Date Last Done Comments Colorectal Cancer Screening Colonoscopy (10 Years) 1970 Annual Physical 1973 Hepatitis C 1988 Hepatitis B Vaccines (1 of 3 - 19+ 3-dose series) 1989 Zoster Vaccines (1 of 2) 2020 DTaP, Tdap and Td Vaccines ( 2 - Td or Tdap) 08/06/2022 08/06/2012 COVID-19 Vaccine (2023-2 5 season) 2024 Meningococcal B Vaccine Aged Out No l onger eligible based on patient's age to complete this topic Meningococcal Vaccine Aged Out No brandt brandt eligible based on patient's age to complete this topic Pneumococcal Vaccine: Pediat rics (0 to 5 Years) and At-Risk Patients (6 to 64 Years) Aged Out No longer eligi ble based on patient's age to complete this topic RSV Immunizations Under 20 Months Aged Out No longer eligible based on patient's age to complete this topic Insurance [facility] Care Teams Electronic Integrated Systems Mechanic Relationship Specialty Start Date End Date Mookie Porter MD [address] [place] [address] PCP - General INTERNAL MEDICINE 09/28/21
[2024-12-26 09:27] LABS: Magnesium 1.9 mg/dL (1.8-2.4)
== END 2024-12-26 08:28 | disposition home or self-care (01) ==
LOC: CHSLAB 08:30
PROVIDERS: PCP Internal Medicine; Visit Provider Internal Medicine
DX: E61.2 Magnesium deficiency (principal)
CPT/HCPCS: 36415; 83735